=== PATIENT | female | born 1995 | race Hispanic/Latino ===

== ENCOUNTER 2017-01-22 13:15 | Inpatient (IN) | payer OTHER ==
[2017-01-22 13:15] VITALS: BMI 30.9
[2017-01-22] MEDS ORDERED: Albuterol-Ipratrop 3 mg / 0.5 (3 ml) UD INH STA ×3 (13:50→13:53)
[2017-01-22] MEDS ORDERED: Sodium Chloride 0.9% 1,000 ML IV STA (13:51)
--- NOTE | 2017-01-22 13:58 | ED PDOC ---
HPI: Asthma Time Seen by Provider: 01/22/17 13:40 Chief Complaint (Nursing): Shortness Of Breath Chief Complaint (Provider): asthma attack History Per: Patient History/Exam Limitations: no limitations Onset/Duration Of Symptoms: Mins (prior to arrival ) Current Symptoms Are (Timing): Still Present Additional Complaint(s): Misty Simmons is a 21 year old female, with a previous medical history of asthma, who presents to the ED via EMS after sustaining in asthma attack in her PMD's office prior to arrival. Pt reports PMD gave her an injection in the office but is unsure of the name. Pt reports to being given 2 nebulizer treatments by EMS. Pt reports treatments helped alleviate symptoms. Pt states associated symptoms include fevers, chills, sore throat and rhinorrhea which began 10:00 this morning. Pt denies any additional complaints at this time. Of note, pt reports to taking albuterol and ventolin PRN. Pt also reports to being admitted into the ICU for 5 days where she was placed on a bipap in 2015. Pt states she has been unable to receive her influenza vaccination due to her recurring illness. PMD: Jorje Dumont MD - Asthma History Prior Intubation (For Asthma): none Medication Use: PRN Past Medical History Reviewed: Historical Data, Nursing Documentation, Vital Signs Vital Signs: Last Vital Signs Temp 98.0 F 01/22/17 13:17 Pulse 124 H 01/22/17 13:17 Resp 28 H 01/22/17 13:17 BP 131/65 01/22/17 13:17 Pulse Ox - Medical History PMH: Asthma Denies: HIV - Surgical History Surgical History: No Surg Hx - Family History Family History: States: Unknown Family Hx - Home Medications Home Medications: Ambulatory Orders Medication Instructions Recorded Albuterol 0.083% [Albuterol 0.083% 2.5 inh INH DAILY PRN 07/21/15 Inhal Shanti (2.5 mg/3 ml) UD] Albuterol HFA [Ventolin HFA 90 2 puff INH BID 07/21/15 mcg/actuation (8 g)] Albuterol 0.083% [Albuterol 3 ml IH Q4 #30 neb 04/15/16 Sulfate 3 Ml] Prednisone 40 mg PO DAILY #8 tablet 04/15/16 Multivit/Folic Acid/I 1 tab PO DAILY #30 tab 04/15/16 [ Plus] predniSONE [predniSONE Tab] 60 mg PO DAILY #9 tab 07/26/16 - Allergies Allergies/Adverse Reactions: Allergies Allergy/AdvReac Type Severity Reaction Status Date / Time grape Allergy URTICARIA Verified 04/15/16 16:44 Review of Systems ROS Statement: Except As Marked, All Systems Reviewed And Found Negative Constitutional: Positive for: Fever, Chills ENT: Positive for: Throat Pain, Other Respiratory: Positive for: Shortness of Breath Physical Exam - Reviewed Nursing Documentation Reviewed: Yes Vital Signs Reviewed: Yes - Physical Exam Appears: Positive for: Well, Non-toxic, No Acute Distress Skin: Positive for: Warm, Dry, Pallor Eye Exam: Positive for: EOMI, Normal appearance, PERRL ENT: Positive for: Normal ENT Inspection Neck: Positive for: Normal, Painless ROM Cardiovascular/Chest: Positive for: Regular Rate, Rhythm Respiratory: Positive for: Wheezing (expiratory bilaterally diffuse ), Other ( prolonged expiration. labored breathing ) Gastrointestinal/Abdominal: Positive for: Normal Exam, Bowel Sounds, Soft. Negative for: Tenderness Back: Positive for: Normal Inspection Extremity: Positive for: Normal ROM Neurologic/Psych: Positive for: Alert, Oriented. Negative for: Motor/Sensory Deficits - Laboratory Results Result Diagrams: 01/22/17 14:18 01/22/17 14:18 - Progress Re-evaluation Time: 16:00 Condition: Re-examined, Unchanged - Critical Care Total Time (In Min): 30 Medical Decision Making Medical Decision Making: Initial Impression: exacerbated asthma Initial Plan: * labs * duo-neb * duo-neb * duo-neb * peak flow pre/post treatment * peak flow pre/post treatment * influenza A B * reevaluation Scribe Attestation: Documented by Kellen Romero, acting as a scribe for Ronit Davis MD. Provider Scribe Attestation: All medical record entries made by the Tony were at my direction and personally dictated by me. I have reviewed the chart and agree that the record accurately reflects my personal performance of the history, physical exam, medical decision making, and the department course for this patient. I have also personally directed, reviewed, and agree with the discharge instructions and disposition. Disposition - Clinical Impression Clinical Impression: Asthma exacerbation - Patient ED Disposition Is Patient to be Admitted: Yes Doctor Will See Patient In The: Hospital - Disposition Disposition: Transfer of Care Disposition Time: 16:39 Condition: FAIR - Pt Status Changed To: Hospital Disposition Of: Inpatient - Admit Certification Admit to Inpatient:: After my assessment, the patient will require hospitalization for at least two midnights. This is because of the severity of symptoms shown, intensity of services needed, and/or the medical risk in this patient being treated as an outpatient. - POA Present On Arrival: None
[2017-01-22 14:29] LABS: BASO # 0.1 K/uL (0.0-0.2); BASO % 0.5 % (0.0-2.0); EOS # 0.2 K/uL (0.0-0.7); EOS % 0.9 % (0.0-4.0); HEMATOCRIT 40.9 % (34.0-47.0); LYMPH # 0.9 K/uL (1.0-4.3); LYMPH % 4.8 % (20.0-40.0); MEAN CELL VOLUME 83.4 fl (81.0-99.0); MEAN CORPUSCULAR HEMOGLOBIN 26.7 pg (27.0-31.0); MEAN PLATELET VOLUME 9.8 fl (7.2-11.7); MONO # 0.2 K/uL (0.0-0.8); MONO % 1.2 % (0.0-10.0); NEUT # 17.8 K/uL (1.8-7.0); NEUT % 92.6 % (50.0-75.0); PLATELET COUNT 236 K/uL (130-400); RED CELL DISTRIBUTION WIDTH 14.9 % (11.5-14.5); WHITE BLOOD COUNT 19.3 K/uL (4.8-10.8)
[2017-01-22 14:37] LABS: BLOOD UREA NITROGEN 16 mg/dl (7-17); CALCIUM 8.7 mg/dL (8.4-10.2); CARBON DIOXIDE 23 mmol/L (22-30); CHLORIDE 108 mmol/L (98-107); GFR AFRICAN-AMERICAN > 60; GLUCOSE,RANDOM 136 mg/dL (65-105); POTASSIUM 3.7 MMOL/L (3.6-5.0); SODIUM 139 mmol/l (132-148)
[2017-01-22 16:16] LABS: EOSINOPHIL 2 % (0-7); NEUTROPHIL 95 % (42-75); TOTAL CELLS COUNTED 100
--- NOTE | 2017-01-22 16:53 | RAD ---
HISTORY: asthma COMPARISON: 07/26/2016 TECHNIQUE: Chest PA and lateral FINDINGS: LUNGS: No active pulmonary disease. PLEURA: No significant pleural effusion identified. No pneumothorax apparent. CARDIOVASCULAR: Normal. OSSEOUS STRUCTURES: No significant abnormalities. VISUALIZED UPPER ABDOMEN: Normal. OTHER FINDINGS: None. IMPRESSION: No active disease. No significant interval change compared to the prior examination(s).
[2017-01-22] MEDS ORDERED: Influenza Vaccine(5yr & older) 0.5 ML/45 MCG IM ONE (18:50)
[2017-01-22] MEDS ORDERED: Albuterol-Ipratrop 3 mg / 0.5 (3 ml) UD ONE (20:28)
[2017-01-22] MEDS: Albuterol-Ipratrop 3 mg / 0.5 (3 ml) UD INH SCH (20:37)
[2017-01-22] MEDS: Azithromycin 500 MG in Sodium Chloride 0.9% 250 ML IVPB SCH (21:26)
[2017-01-23] MEDS: methylPREDNISolone 80 MG in Sodium Chloride 0.9% 50 ML IV SCH ×2 (00:08→09:17)
[2017-01-23] MEDS: Albuterol-Ipratrop 3 mg / 0.5 (3 ml) UD INH SCH ×6 (01:00→21:49)
[2017-01-23 07:47] LABS: ALB/GLOB RATIO 1.1 (1.0-2.1); ALKALINE PHOSPHATASE 109 U/L (38-126); ALT/SGPT 28 U/L (9-52); AST/SGOT 17 U/L (14-36); BILIRUBIN,TOTAL 0.3 mg/dl (0.2-1.3); BLOOD UREA NITROGEN 15 mg/dl (7-17); CALCIUM 8.8 mg/dL (8.4-10.2); CARBON DIOXIDE 19 mmol/L (22-30); CHLORIDE 109 mmol/L (98-107); GFR AFRICAN-AMERICAN > 60; GLUCOSE,RANDOM 148 mg/dL (65-105); POTASSIUM 3.5 MMOL/L (3.6-5.0); SODIUM 139 mmol/l (132-148); TOTAL PROTEIN 7.3 G/DL (6.3-8.2)
[2017-01-23 07:59] LABS: HEMATOCRIT 39.9 % (34.0-47.0); MEAN CELL VOLUME 83.4 fl (81.0-99.0); MEAN CORPUSCULAR HEMOGLOBIN 26.9 pg (27.0-31.0); MEAN CORPUSCULAR HGB CONC 32.3 g/dL (33.0-37.0); RED CELL DISTRIBUTION WIDTH 14.9 % (11.5-14.5); WHITE BLOOD COUNT 15.2 K/uL (4.8-10.8)
[2017-01-23] MEDS: Azithromycin 500 MG in Sodium Chloride 0.9% 250 ML IVPB SCH (09:18)
--- NOTE | 2017-01-23 10:51 | HP ---
CHIEF COMPLAINT: Shortness of breath. HISTORY OF PRESENT ILLNESS: This is a 21-year-old female, known case of bronchial asthma with histor y of hospital admission from asthma exacerbation in the past, who was seen in the office yesterday an d was found to be in acute exacerbation of bronchial asthma. The patient was treated with inhalation al treatment and steroid injection, but patient's condition did not improve and the patient continued having shortness of breath, so patient was sent to the Emergency Room and was admitted for further m anagement. REVIEW OF SYSTEMS: Positive for shortness of breath. Review of systems otherwise is negative for he adache, dizziness, syncope, loss of consciousness, nausea, vomiting, diarrhea, constipation, any new joint or extremity pain. Review of systems of all other organ systems is unremarkable. PAST MEDICAL HISTORY: Significant for bronchial asthma. PAST SURGICAL HISTORY: Unremarkable. PERSONAL HISTORY: The patient is currently a nonsmoker, nondrinker, no substance abuse. MEDICATIONS: As per reconciliation sheet which was reviewed, in order. ALLERGIES: The patient is not allergic to any medication. FAMILY HISTORY: Noncontributory. PHYSICAL EXAMINATION: GENERAL: Well-built, well-nourished, overweight female in no acute respiratory distress. VITAL SIGNS: Temperature afebrile, pulse 76, respirations 23, blood pressure 140/80. HEENT: Pupils reacting to light. No JVD, no thyromegaly, no lymphadenopathy, no nystagmus. Normoce phalic, atraumatic skull. HEART: S1, S2 normal, regular. LUNGS: The patient has bilateral rhonchi and prolonged expiration. No crepitations. The patient al so has minimal wheezing which is only minimally better than yesterday. ABDOMEN: Soft, nontender, no organomegaly, no fluid. Bowel sounds are plus. EXTREMITIES: No edema, no calf swelling, no tenderness, no acute ischemia. CENTRAL NERVOUS SYSTEM: Essentially unchanged and there is no sign of any acute gross focal motor or sensory neurological deficit. DIAGNOSTIC DATA: Available diagnostic data reviewed. White count is elevated at 19 and now down to 15 as well as ____ compatible with patient's usual laboratory exam. ADMITTING IMPRESSION: Acute exacerbation of bronchial asthma. PLAN: As ordered. Case and plan discussed with patient. Tim Recinos MD cc: [id number] TT: 01/23/2017 10:50:37 tn
[2017-01-23] MEDS: methylPREDNISolone 100 MG in Sodium Chloride 0.9% 50 ML IVPB SCH (17:05)
[2017-01-24] MEDS: methylPREDNISolone 100 MG in Sodium Chloride 0.9% 50 ML IVPB SCH ×2 (00:24→09:36)
[2017-01-24] MEDS: Albuterol-Ipratrop 3 mg / 0.5 (3 ml) UD INH SCH ×7 (00:25→23:51)
--- NOTE | 2017-01-24 07:39 | PQF GENQUE ---
This form is a permanent part of the medical record 01/24/17 Dr. Recinos, Would you please clarify the type of asthma if known . See Physician response section. Admitted for an acute exacerbation of bronchial asthma. Treated with o2, Solumedrol, nebulizer treatments and Zithromax Clarification of your documentation is requested to better reflect the severity of illness and intensity of treatment of your patient. PHYSICIAN'S RESPONSE Type of asthma: [ ] Childhood [ ] Cough variant [ ] Exercise induced [ ] Late onset [ ] Mild intermittent [ ] Mild persistent [ ] Moderate persistent [ ] Severe persistent [ ] With bronchitis(please clarify acuity of bronchitis) [ ] With chronic lung disease (please document specific chronic lung disease ) [ ] Other (please specify) [ ] Unable to determine [ ] Unknown Based on your medical judgment of the clinical indicators outlined above please clarify the following: [] Practitioner response [] If unable to determine, please check the box, sign and date. Present On Admission (POA) Indicator: [] Present at the time of admission [] Not present at the time of admission [] Clinically Undetermined In responding to this query, please exercise your independent professional judgment. The fact that a question is asked does not imply that any particular answer is desired or expected. Thank you for your clarification on this documentation. If you have any questions please call:[phone] * Thank you, Cristina Murray RN CDMP [facility]
--- NOTE | 2017-01-24 10:08 | PN ---
DATE: 01/24/2017 The patient seen and examined. Interim events noted. The patient remains on regular medical floor. The patient feels a little better. Breathing improved, wheezing is decreased. No chest pain, no sh ortness of breath. PHYSICAL EXAMINATION: GENERAL: The patient is in no acute distress. VITAL SIGNS: Stable. HEART: S1, S2 normal, regular. LUNGS: The patient still has prolonged expiration, but wheezing resolved. No rales. Occasional rho nchi. ABDOMEN: Soft, nontender. EXTREMITIES: No calf swelling, no tenderness, no acute ischemia. CENTRAL NERVOUS SYSTEM: Essentially unchanged. DIAGNOSTIC DATA: Available reviewed. Overall, patient's general medical condition is stable and improving. PLAN: As ordered. Tim Recinos MD cc: [id number] TT: 01/24/2017 10:08:02 Confirmation # [id number] Dictation # [id number]
[2017-01-24] MEDS: Azithromycin 500 MG in Sodium Chloride 0.9% 250 ML IVPB SCH (10:50)
[2017-01-24] MEDS: methylPREDNISolone 80 MG in Sodium Chloride 0.9% 50 ML IVPB SCH (16:45)
[2017-01-25] MEDS: methylPREDNISolone 80 MG in Sodium Chloride 0.9% 50 ML IVPB SCH ×2 (00:15→08:02)
[2017-01-25] MEDS: Albuterol-Ipratrop 3 mg / 0.5 (3 ml) UD INH SCH ×6 (04:59→23:43)
[2017-01-25] MEDS: Azithromycin 500 MG in Sodium Chloride 0.9% 250 ML IVPB SCH (08:03)
--- NOTE | 2017-01-25 08:36 | PN ---
DATE: 01/25/2017 The patient was seen and examined. Interim events noted. The patient remains in medical floor. The patient feels much better, getting improved. No chest pain, no shortness of breath. ____. PHYSICAL EXAMINATION: GENERAL: The patient is in no acute distress. VITAL SIGNS: Stable. HEART: S1, S2 normal, regular. LUNGS: Good bilateral air entry. No wheezing, no rhonchi. ABDOMEN: Soft, nontender. EXTREMITIES: No calf swelling, no tenderness, no acute ischemia. CENTRAL NERVOUS SYSTEM: Essentially unchanged. DIAGNOSTIC DATA: Available diagnostic data reviewed. The patient is slowly improving. Asthma is under control. ____ steroid. PLAN: As ordered. Case and plan discussed with patient and the patient's mother. Tim Recinos MD cc: [id number] TT: 01/25/2017 08:35:27 Confirmation # [id number] Dictation # [id number] tn
[2017-01-25] MEDS: methylPREDNISolone 60 MG in Sodium Chloride 0.9% 50 ML IVPB SCH (17:03)
[2017-01-26] MEDS: methylPREDNISolone 60 MG in Sodium Chloride 0.9% 50 ML IVPB SCH
[2017-01-26] MEDS: Albuterol-Ipratrop 3 mg / 0.5 (3 ml) UD INH SCH ×5 (04:54→19:39)
--- NOTE | 2017-01-26 07:57 | PN ---
DATE: 01/26/2017 The patient is seen and examined. Interim events noted. The patient remains on medical floor. The patient feels better. No chest pain, no shortness of breath. PHYSICAL EXAMINATION: GENERAL: The patient is in no acute distress. VITAL SIGNS: Stable. HEART: S1, S2 normal, regular. LUNGS: Good bilateral air exchange. ABDOMEN: Soft, nontender. EXTREMITIES: No edema, no calf swelling, no tenderness, no acute ischemia. CENTRAL NERVOUS SYSTEM: Essentially unchanged. DIAGNOSTIC DATA: Available diagnostic data reviewed. Overall, the patient's general medical condition is stable. The patient still has some prolonged exp iration on lung exam, but it improved remarkably per the patient. PLAN: As ordered. Tim Recinos MD cc: [id number] TT: 01/26/2017 07:56:31 Confirmation # [id number] Dictation # [id number]
[2017-01-26] MEDS: Azithromycin 500 MG in Sodium Chloride 0.9% 250 ML IVPB SCH (09:21)
[2017-01-26] MEDS: methylPREDNISolone 40 MG in Sodium Chloride 0.9% 50 ML IVPB SCH ×2 (11:43→17:25)
[2017-01-27] MEDS: Albuterol-Ipratrop 3 mg / 0.5 (3 ml) UD INH SCH ×3 (00:12→08:05)
[2017-01-27 09:52] VITALS: BP 137/83; PULSE 84; RESP 22; TEMP 97.8; O2SAT 100
--- NOTE | 2017-01-27 10:04 | PN ---
DATE: 01/27/2017 The patient seen and examined. Interim events noted. The patient feels much better. No chest pain or shortness of breath. No wheezing. PHYSICAL EXAMINATION: GENERAL: The patient is in no acute distress. VITAL SIGNS: Stable. HEART: S1, S2 normal, regular. LUNGS: Good bilateral air exchange. ABDOMEN: Soft, nontender. EXTREMITIES: No edema, no calf swelling, no tenderness. No acute ischemia. CENTRAL NERVOUS SYSTEM: Essentially unchanged. DIAGNOSTIC DATA: Available diagnostic data reviewed. Overall, patient's general medical condition is stable. The patient is tolerating p.o. medication. Wheezing stopped after exacerbation of bronchial asthma resolved. The patient is medically stable an d will discharge patient home. Case and plan discussed with patient. Tim Recinos MD cc: [id number] TT: 01/27/2017 10:03:49 Confirmation # [id number] Dictation # [id number]
== END 2017-01-27 11:10 | disposition home or self-care (01) | DRG 97 ==
LOC: H.ER 13:15 → H.ERHOLD 17:08 → H.PEDS 18:25
PROVIDERS: ADMIT Internal Medicine; ATTEND Internal Medicine
DX: J45.41 Moderate persistent asthma with (acute) exacerbation (principal); E66.3 Overweight; Z68.32 Body mass index [BMI] 32.0-32.9, adult

== ENCOUNTER 2017-03-02 00:43 | Emergency (ER) | payer OTHER ==
[2017-03-02 00:43] VITALS: BMI 30.9
[2017-03-02 00:58] VITALS: BP 124/55; PULSE 74; RESP 18; TEMP 98; O2SAT 100
--- NOTE | 2017-03-02 02:38 | ED PDOC ---
Upper Extremity Pain/Injury Time Seen by Provider: 03/02/17 02:19 Chief Complaint (Nursing): Upper Extremity Problem/Injury Chief Complaint (Provider): right shoulder pain History Per: Patient History/Exam Limitations: no limitations Additional Complaint(s): 21yo F in Ed for eval of right shoulder pain sustained this morning upon awakeining without acute injury. denies numbness/tingling to UE. admits to dec ROM of shoulder. no medical problems Past Medical History Reviewed: Historical Data, Nursing Documentation, Vital Signs Vital Signs: Last Vital Signs Temp 98 F 03/02/17 00:49 Pulse 74 03/02/17 00:49 Resp 18 03/02/17 00:49 BP 124/55 L 03/02/17 00:49 Pulse Ox 100 03/02/17 00:49 - Medical History PMH: Asthma Denies: HIV, Chronic Kidney Disease - Family History Family History: States: Unknown Family Hx - Home Medications Home Medications: Ambulatory Orders Medication Instructions Recorded Albuterol HFA [Ventolin HFA 90 2 puff INH BID 07/21/15 mcg/actuation (8 g)] Naproxen [Naprosyn] 500 mg PO BID #30 tab 03/02/17 - Allergies Allergies/Adverse Reactions: Allergies Allergy/AdvReac Type Severity Reaction Status Date / Time grape Allergy URTICARIA Verified 01/23/17 10:43 Review of Systems ROS Statement: Except As Marked, All Systems Reviewed And Found Negative Musculoskeletal: Positive for: Shoulder Pain Physical Exam - Reviewed Nursing Documentation Reviewed: Yes Vital Signs Reviewed: Yes - Physical Exam Appears: Positive for: Well, Non-toxic, No Acute Distress Head Exam: Positive for: ATRAUMATIC, NORMAL INSPECTION, NORMOCEPHALIC Skin: Positive for: Normal Color, Warm, DRY Cardiovascular/Chest: Positive for: Regular Rate, Rhythm Respiratory: Positive for: CNT, Normal Breath Sounds Extremity: Positive for: Other (right shoulder: nontendern AC joint no defomirty FROM of shoulder axiallry nerve intact) Neurologic/Psych: Positive for: Alert, Oriented - ECG O2 Sat by Pulse Oximetry: 100 - Progress ED Course And Treament: torodol IM Medical Decision Making Medical Decision Making: pt given torodol pain improved advised to continue to range shoulder and f.u with pmd motrin for apin Disposition - Clinical Impression Clinical Impression: Shoulder injury - Patient ED Disposition Is Patient to be Admitted: No Counseled Patient/Family Regarding: Studies Performed, Diagnosis, Need For Followup, Rx Given - Disposition Disposition: Routine/Home Disposition Time: 02:40 Condition: IMPROVED Prescriptions: Naproxen [Naprosyn] 500 mg PO BID #30 tab Instructions: Shoulder Pain (ED)
== END 2017-03-02 03:03 | disposition home or self-care (01) ==
LOC: H.ER 00:43
DX: M25.511 Pain in right shoulder (principal)

== ENCOUNTER 2017-08-17 20:16 | Emergency (ER) | payer OTHER ==
[2017-08-17 20:17] VITALS: BMI 30.9
[2017-08-17] MEDS ORDERED: Albuterol-Ipratrop 3 mg / 0.5 (3 ml) UD ONE (20:38)
[2017-08-17] MEDS ORDERED: Albuterol-Ipratrop 3 mg / 0.5 (3 ml) UD INH STA (20:50)
--- NOTE | 2017-08-17 21:00 | ED PDOC ---
HPI: SOB/CHF/COPD Time Seen by Provider: 08/17/17 20:29 Chief Complaint (Nursing): Shortness Of Breath Chief Complaint (Provider): Shortness of breath History Per: Patient History/Exam Limitations: no limitations Onset/Duration Of Symptoms: Days (x1), Worse Since (today) Current Symptoms Are (Timing): Still Present Quality: Tightness Associated Symptoms: Productive Cough, Other (Runny nose & sore throat). denies : Fever, Ankle/Leg Swelling Additional Complaint(s): Misty Simmons is a 21 year old female, with a past medical history of asthma, who presents to the emergency department complaining of a worsening shortness of breath onset since yesterday. Patient describes it as chest tightness, similar to previous asthma exacerbations, but no improvement with home medications. Patient also reports having URI since yesterday with productive cough, runny nose and sore throat. Patient was seen by PMD yesterday who prescribed him prednisone and azithromycin. Patient denies any fever, leg swelling or hemoptysis. No further medical complaints. PMD: Dr. Woody Past Medical History Reviewed: Historical Data, Nursing Documentation, Vital Signs Vital Signs: Last Vital Signs Temp Pulse 130 H 08/17/17 20:27 Resp 20 08/17/17 20:34 BP 121/75 08/17/17 20:27 Pulse Ox 98 08/17/17 21:14 - Medical History PMH: Asthma Denies: HIV, Chronic Kidney Disease - Surgical History Surgical History: Hernia Repair (as an ) - Family History Family History: States: Other Other Family History: Asthma - Social History Current smoker - smoking cessation education provided: No Alcohol: None Drugs: Denies - Home Medications Home Medications: Ambulatory Orders Medication Instructions Recorded Albuterol HFA [Ventolin HFA 90 2 puff INH BID 07/21/15 mcg/actuation (8 g)] Naproxen [Naprosyn] 500 mg PO BID #30 tab 03/02/17 Albuterol 0.083% [Albuterol 3 ml IH Q4 PRN #50 neb 08/17/17 Sulfate 3 Ml] Albuterol HFA [Ventolin HFA 90 2 puff IH Q4H PRN #1 inh 08/17/17 mcg/actuation (8 g)] Fexofenadine HCl [CamilleNf] 180 mg PO DAILY #30 tab 08/17/17 Montelukast [Singulair] 10 mg PO DAILY #30 tab 08/17/17 - Allergies Allergies/Adverse Reactions: Allergies Allergy/AdvReac Type Severity Reaction Status Date / Time grape Allergy URTICARIA Verified 01/23/17 10:43 Review of Systems ROS Statement: Except As Marked, All Systems Reviewed And Found Negative Constitutional: Negative for: Fever ENT: Positive for: Throat Pain (sore throat), Other (Runny nose) Respiratory: Positive for: Cough (productive ), Shortness of Breath. Negative for: Other (hemoptysis ) Musculoskeletal: Negative for: Leg Pain (leg swelling) Physical Exam - Reviewed Nursing Documentation Reviewed: Yes Vital Signs Reviewed: Yes - Physical Exam Appears: Positive for: Non-toxic, In Acute Distress Head Exam: Positive for: ATRAUMATIC, NORMOCEPHALIC Skin: Positive for: Warm, Dry Eye Exam: Positive for: EOMI, PERRL ENT: Negative for: Pharyngeal Erythema, Tonsillar Exudate Neck: Positive for: Painless ROM, Supple Cardiovascular/Chest: Positive for: Tachycardia (regular rhythm) Respiratory: Positive for: Wheezing, Respiratory Distress. Negative for: Rales , Rhonchi Gastrointestinal/Abdominal: Positive for: Soft. Negative for: Tenderness Back: Positive for: Normal Inspection. Negative for: Decreased ROM Extremity: Positive for: Normal ROM. Negative for: Pedal Edema Lymphatic: Negative for: Adenopathy Neurologic/Psych: Positive for: Alert. Negative for: Motor/Sensory Deficits - Laboratory Results Result Diagrams: 08/17/17 21:40 08/17/17 21:40 - ECG ECG: Positive for: Interpreted By Hi ECG Rhythm: Positive for: Normal ST Segment, Sinus Tachycardia O2 Sat by Pulse Oximetry: 98 (RA) Pulse Ox Interpretation: Normal - Radiology X-Ray: Interpreted by Hi X-Ray Interpretation: No Acute Disease - Progress Re-evaluation Time: 22:00 Condition: Improving,but remains with symptoms (Evaluated again at 11pm and pt reports feeling better.) - Critical Care Total Time (In Min): 30 Documented Critical Care: Time excludes all time spent performint seperately billable procedures Medical Decision Making Medical Decision Making: Initial Impression: Asthma exacerbation. Differential includes: viral syndrome, PNA, status asthmaticus Initial Plan: --Venous Blood Gas Shock Panel --EKG --Comp Metabolic Panel --Urine Dipstick --Urine prepgnancy --CBC w/ differential --Chest portable [RAD] --Duoneb 9 ml INH --methylPREDNISoline 125 mg IVP --Blood culture --Peak flow Pre/post [place] --Influenza A B --Rapid Strep Group A antigen --reevaluation 11pm Pt reports feeling better. Eager to go home. Lung sounds improved despite minimal improvement of peak flow. DW pt findings and need to follow up. Will also rx camille, singulair and additional albuterol Scribe Attestation: Documented by Claudio Randall, acting as a scribe for Faith Steele MD Provider Scribe Attestation: All medical record entries made by the Scribe were at my direction and personally dictated by me. I have reviewed the chart and agree that the record accurately reflects my personal performance of the history, physical exam, medical decision making, and the department course for this patient. I have also personally directed, reviewed, and agree with the discharge instructions and disposition. Disposition - Clinical Impression Clinical Impression: Asthma exacerbation Counseled Patient/Family Regarding: Studies Performed, Diagnosis, Need For Followup, Rx Given - Disposition Referrals: Tim Myers MD [Family Provider] - 08/18/17 Disposition: Routine/Home Disposition Time: 23:06 Condition: IMPROVED Additional Instructions: CONTINUE PREDNISONE AND AZITHROMYCIN PRESCRIBED FOLLOW UP WITH DR MYERS TOMORROW RETURN TO ER FOR WORSENING SYMPTOMS Prescriptions: Albuterol 0.083% [Albuterol Sulfate 3 Ml] 3 ml IH Q4 PRN #50 neb PRN Reason: asthma Albuterol HFA [Ventolin HFA 90 mcg/actuation (8 g)] 2 puff IH Q4H PRN #1 inh PRN Reason: ASTHMA Fexofenadine HCl [CamilleNf] 180 mg PO DAILY #30 tab Montelukast [Singulair] 10 mg PO DAILY #30 tab Instructions: Asthma (ED), Bronchospasm (ED) Forms: [facility] ED School/Work Excuse
[2017-08-17 21:37] LABS: VENOUS BLOOD GAS BASE EXCESS -5.6 mmol/L (0.0-2.0); VENOUS BLOOD GAS PCO2 30 mmHg (40-60); VENOUS BLOOD PH 7.39 (7.32-7.43)
[2017-08-17 21:56] LABS: BASO % 0.2 % (0.0-2.0); HEMATOCRIT 39.3 % (34.0-47.0); LYMPH # 0.6 K/uL (1.0-4.3); LYMPH % 4.8 % (20.0-40.0); MEAN CELL VOLUME 83.9 fl (81.0-99.0); MEAN CORPUSCULAR HEMOGLOBIN 26.7 pg (27.0-31.0); MEAN CORPUSCULAR HGB CONC 31.9 g/dL (33.0-37.0); MEAN PLATELET VOLUME 10.5 fl (7.2-11.7); MONO # 0.3 K/uL (0.0-0.8); MONO % 2.5 % (0.0-10.0); NEUT # 12.2 K/uL (1.8-7.0); NEUT % 92.5 % (50.0-75.0); PLATELET COUNT 255 K/uL (130-400); WHITE BLOOD COUNT 13.2 K/uL (4.8-10.8)
[2017-08-17 22:02] LABS: ALB/GLOB RATIO 1.4 (1.0-2.1); ALKALINE PHOSPHATASE 90 U/L (38-126); ALT/SGPT 21 U/L (9-52); AST/SGOT 18 U/L (14-36); BILIRUBIN,TOTAL 0.1 mg/dl (0.2-1.3); BLOOD UREA NITROGEN 16 mg/dl (7-17); CARBON DIOXIDE 16 mmol/L (22-30); CHLORIDE 111 mmol/L (98-107); GFR AFRICAN-AMERICAN > 60; GLUCOSE,RANDOM 203 mg/dL (65-105); POTASSIUM 3.8 MMOL/L (3.6-5.0); SODIUM 144 mmol/l (132-148); TOTAL PROTEIN 7.1 G/DL (6.3-8.2)
[2017-08-17 22:34] LABS: BASOPHIL 1 % (0-2); NEUTROPHIL 92 % (42-75); TOTAL CELLS COUNTED 100
[2017-08-17 23:20] VITALS: BP 133/65; PULSE 110; RESP 18; TEMP 98
[2017-08-17 23:22] VITALS: O2SAT 98
--- NOTE | 2017-08-18 08:29 | CARD ---
APPROVED REPORT EKG Measurement Heart [id number] <Conclusion> Sinus tachycardia Otherwise normal ECG
--- NOTE | 2017-08-18 08:49 | RAD ---
HISTORY: sob cough COMPARISON: Chest radiographs 01/22/2017. FINDINGS: LUNGS: No active pulmonary disease. PLEURA: No significant pleural effusion identified, no pneumothorax apparent. CARDIOVASCULAR: Normal. OSSEOUS STRUCTURES: No significant abnormalities. VISUALIZED UPPER ABDOMEN: Normal. OTHER FINDINGS: None. IMPRESSION: No interval acute cardiopulmonary disease appreciated.
== END 2017-08-17 23:20 | disposition home or self-care (01) ==
LOC: H.ER 20:16
DX: J45.901 Unspecified asthma with (acute) exacerbation (principal); J98.01 Acute bronchospasm
CPT/HCPCS: 71010; 80053; 81025; 82803; 85025; 87040; 87070; 87430; 87804; 93005; 94150; 94640; 96374; 99285; J2930

== ENCOUNTER 2018-03-18 20:07 | Emergency (ER) | payer OTHER ==
[2018-03-18 20:07] VITALS: BMI 30.9
[2018-03-18 20:28] VITALS: BP 99/52; PULSE 97; TEMP 97.7; O2SAT 99
[2018-03-18] MEDS ORDERED: Albuterol-Ipratrop 3 mg / 0.5 (3 ml) UD INH STA ×3 (20:36→20:37)
--- NOTE | 2018-03-18 20:47 | ED PDOC ---
HPI: SOB/CHF/COPD Time Seen by Provider: 03/18/18 20:26 Chief Complaint (Nursing): Shortness Of Breath Chief Complaint (Provider): shortness of breath History Per: Patient History/Exam Limitations: no limitations Onset/Duration Of Symptoms: Days (x2) Current Symptoms Are (Timing): Still Present Associated Symptoms: denies: Fever, Chills, Other (vomiting and diarrhea) Additional Complaint(s): Misty Simmons is a 22 year old female, with a past medical history of asthma, who presents to the emergency department complaining of shortness of breath onset for x2 days. Patient reports since yesterday she's had intermittent wheezing, shortness of breath, and a sensation of chest tightness. Patient used inhaler and nebulizer at home with no relief. Patient had a sore throat yesterday but resolved. She denies any fever, chills, vomiting or diarrhea. No further medical complaints. PMD: Tim Recinos Past Medical History Reviewed: Historical Data, Nursing Documentation, Vital Signs Vital Signs: Last Vital Signs Temp 97.7 F 03/18/18 20:26 Pulse 97 H 03/18/18 20:26 Resp 22 03/18/18 20:57 BP 99/52 L 03/18/18 20:26 Pulse Ox 99 03/18/18 20:52 - Medical History PMH: Asthma Denies: HIV, Chronic Kidney Disease - Surgical History Surgical History: Hernia Repair (as an infant) - Family History Family History: States: Unknown Family Hx - Social History Current smoker - smoking cessation education provided: No Alcohol: None Drugs: Denies - Home Medications Home Medications: Ambulatory Orders Medication Instructions Recorded Albuterol HFA [Ventolin HFA 90 2 puff INH BID 07/21/15 mcg/actuation (8 g)] Naproxen [Naprosyn] 500 mg PO BID #30 tab 03/02/17 Albuterol 0.083% [Albuterol 3 ml IH Q4 PRN #50 neb 08/17/17 Sulfate 3 Ml] Albuterol HFA [Ventolin HFA 90 2 puff IH Q4H PRN #1 inh 08/17/17 mcg/actuation (8 g)] Fexofenadine HCl [MarniNf] 180 mg PO DAILY #30 tab 08/17/17 Montelukast [Singulair] 10 mg PO DAILY #30 tab 08/17/17 Methylprednisolone [Medrol Dosepak] 4 mg PO ASDIR #1 pkg 03/18/18 - Allergies Allergies/Adverse Reactions: Allergies Allergy/AdvReac Type Severity Reaction Status Date / Time grape Allergy URTICARIA Verified 01/23/17 10:43 Review of Systems ROS Statement: Except As Marked, All Systems Reviewed And Found Negative Constitutional: Negative for: Fever, Chills ENT: Negative for: Throat Pain (resolved) Respiratory: Positive for: Shortness of Breath, Wheezing, Other (chest tightness ) Gastrointestinal: Negative for: Vomiting, Diarrhea Physical Exam - Reviewed Nursing Documentation Reviewed: Yes Vital Signs Reviewed: Yes - Physical Exam Appears: Positive for: Non-toxic Head Exam: Positive for: ATRAUMATIC, NORMOCEPHALIC Skin: Positive for: Normal Color, Warm, Dry Eye Exam: Positive for: Normal appearance, EOMI, PERRL Neck: Positive for: Painless ROM Cardiovascular/Chest: Positive for: Regular Rate, Rhythm. Negative for: Murmur Respiratory: Positive for: Wheezing (bilateral expiratory with decreased air entry, more pronounced on left than right), Respiratory Distress (mild ) Gastrointestinal/Abdominal: Positive for: Normal Exam, Soft. Negative for: Tenderness Back: Positive for: Normal Inspection. Negative for: L CVA Tenderness, R CVA Tenderness, Vertebral Tenderness Extremity: Positive for: Normal ROM (upper and lower extremities). Negative for : Deformity, Swelling Neurologic/Psych: Positive for: Alert, Oriented. Negative for: Motor/Sensory Deficits - ECG O2 Sat by Pulse Oximetry: 99 (RA) Pulse Ox Interpretation: Normal - Critical Care Total Time (In Min): 30 Documented Critical Care: Time excludes all time spent performint seperately billable procedures Medical Decision Making Medical Decision Making: Initial Impression: 22 y/o female with asthma exacerbation Initial Plan: --Urine --Duoneb 3 ml INH --SOLU-medrol 125 mg IVP --Peak flow pre/post Tx --Reevaluation 22:30 -Patient reports significant improvement of symptoms. Patient is medically stable for discharge at this time, diagnosis asthma exacerbation. ----- Scribe Attestation: Documented by Claudio Randall, acting as a scribe for Bryan Mar MD. Provider Scribe Attestation: All medical record entries made by the Scribe were at my direction and personally dictated by me. I have reviewed the chart and agree that the record accurately reflects my personal performance of the history, physical exam, medical decision making, and the department course for this patient. I have also personally directed, reviewed, and agree with the discharge instructions and disposition. Disposition - Clinical Impression Clinical Impression: Asthma exacerbation - Disposition Disposition: Routine/Home Disposition Time: 22:30 Condition: STABLE Prescriptions: Methylprednisolone [Medrol Dosepak] 4 mg PO ASDIR #1 pkg Instructions: Asthma in Adults Forms: [facility] (Yoruba)
[2018-03-18 20:58] VITALS: RESP 22
[2018-03-18] MEDS ORDERED: Albuterol-Ipratrop 3 mg / 0.5 (3 ml) UD ONE (21:15)
== END 2018-03-18 22:56 | disposition home or self-care (01) ==
LOC: H.ER 20:07
DX: J45.901 Unspecified asthma with (acute) exacerbation (principal); J44.9 Chronic obstructive pulmonary disease, unspecified
CPT/HCPCS: 81025; 94640; 96374; 99283; J2930

== ENCOUNTER 2018-10-17 14:39 | Emergency (ER) | payer OTHER ==
[2018-10-17 14:39] VITALS: BMI 30.9
[2018-10-17] MEDS ORDERED: Albuterol-Ipratrop 3 mg / 0.5 (3 ml) UD IH STA ×2 (15:48→15:49)
[2018-10-17] MEDS ORDERED: Albuterol-Ipratrop 3 mg / 0.5 (3 ml) UD INH STA (15:48)
--- NOTE | 2018-10-17 15:51 | ED PDOC ---
History of Present Illness History of Present Illness: Misty Simmons is a 22 year old female with a past medical history of asthma who is presenting to the ED for evaluation of cough, congestion, and trouble breathing onset yesterday. Patient states that she has mild chest tightness similar to past episodes of asthma exacerbation and reports green phlegm. She admits that she took her asthma treatment at home with no improvement in symptoms. Patient denies any nausea, vomiting, abdominal pain, or leg pain. She offers no other medical complaints at this time. No weakness. No long distance travel or bc pills. PMD: Tim Recinos HPI: Influenza Time Seen by Provider: 10/17/18 15:17 Chief Complaint: Cough, Cold, Congestion Chief Complaint (Provider): Cough, Cold, Congestion History Per: Patient Exam Limitations: no limitations Onset/Duration Of Symptoms: Days (x1) Symptoms include: cough, nasal congestion, chest pain (tightness), difficulty breathing. denies: vomiting Past Medical History Reviewed: Historical Data, Nursing Documentation, Vital Signs Vital Signs: Last Vital Signs Temp 99.1 F 10/17/18 14:49 Pulse 119 H 10/17/18 14:49 Resp 16 10/17/18 14:49 BP 112/67 10/17/18 14:49 Pulse Ox 96 10/17/18 14:49 - Medical History PMH: Asthma Denies: HIV, Chronic Kidney Disease - Surgical History Surgical History: Hernia Repair (as an ) - Family History Family History: States: Unknown Family Hx - Social History Current smoker - smoking cessation education provided: No Alcohol: None Drugs: Denies - Home Medications Home Medications: Ambulatory Orders Medication Instructions Recorded Albuterol HFA [Ventolin HFA 90 2 puff INH BID 07/21/15 mcg/actuation (8 g)] Naproxen [Naprosyn] 500 mg PO BID #30 tab 03/02/17 Albuterol 0.083% [Albuterol 3 ml IH Q4 PRN #50 neb 08/17/17 Sulfate 3 Ml] Albuterol HFA [Ventolin HFA 90 2 puff IH Q4H PRN #1 inh 08/17/17 mcg/actuation (8 g)] Fexofenadine HCl [MarniNf] 180 mg PO DAILY #30 tab 08/17/17 Montelukast [Singulair] 10 mg PO DAILY #30 tab 08/17/17 Methylprednisolone [Medrol Dosepak] 4 mg PO ASDIR #1 pkg 03/18/18 Albuterol Sulfate [Proair Hfa] 0.09 mg IH Q6H PRN #2 inh 10/17/18 predniSONE [predniSONE Tab] 20 mg PO BID 5 Days tab 10/17/18 - Allergies Allergies/Adverse Reactions: Allergies Allergy/AdvReac Type Severity Reaction Status Date / Time grape Allergy URTICARIA Verified 01/23/17 10:43 Review of Systems ROS Statement: Except As Marked, All Systems Reviewed And Found Negative ENT: Positive for: Nose Congestion Cardiovascular: Positive for: Chest Pain (tightness) Respiratory: Positive for: Cough, Shortness of Breath, Sputum, Wheezing, Other (difficulty breathing ) Gastrointestinal: Negative for: Nausea, Vomiting, Abdominal Pain Musculoskeletal: Negative for: Leg Pain Physical Exam - Reviewed Nursing Documentation Reviewed: Yes Vital Signs Reviewed: Yes - Physical Exam Appears: Positive for: Uncomfortable Head Exam: Positive for: ATRAUMATIC, NORMAL INSPECTION, NORMOCEPHALIC Skin: Positive for: Normal Color, Warm, DRY Eye Exam: Positive for: EOMI, Normal appearance, PERRL ENT: Positive for: Nasal Congestion Neck: Positive for: Normal, Painless ROM, Supple Cardiovascular/Chest: Positive for: Regular Rate, Rhythm. Negative for: Murmur Respiratory: Positive for: Decreased Breath Sounds, Wheezing (diffuse ) Gastrointestinal/Abdominal: Positive for: Normal Exam, Soft. Negative for: Tenderness Back: Positive for: Normal Inspection. Negative for: L CVA Tenderness, R CVA Tenderness Extremity: Positive for: Normal ROM. Negative for: Pedal Edema, Deformity, Swelling Neurologic/Psych: Positive for: Alert, Oriented. Negative for: Motor/Sensory Deficits Medical Decision Making Medical Decision Making: Time: 15:49 Plan: --EKG --Duoneb 3 ml INH (x3) --Prednisone Tab 60 mg PO --Peak Flow Pre/Post Tx (x2) --Influenza A B Scribe Attestation: Documented by, Tessa Jain acting as a scribe for Des Gallagher MD. Provider Scribe Attestation: All medical record entries made by the Scribe were at my direction and pers onally dictated by me. I have reviewed the chart and agree that the record accurately reflects my personal performance of the history, physical exam, medical decision making, and the department course for this patient. I have also personally directed, reviewed, and agree with the discharge instructions and disposition. - ECG O2 Sat by Pulse Oximetry: 96 (RA) Pulse Ox Interpretation: Normal - Progress ED Course And Treament: 1657: Stable. AAOx3. Tolerated PO. Fu with pcp. Breathing with no issues. - Critical Care Total Time (In Min): 30 Documented Critical Care: Time excludes all time spent performint seperately jaycee lable procedures Disposition - Clinical Impression Clinical Impression: Asthma exacerbation, URI (upper respiratory infection) - Patient ED Disposition Is Patient to be Admitted: No Counseled Patient/Family Regarding: Studies Performed, Diagnosis, Need For Followup, Rx Given - Disposition Referrals: [facility] [Outside] - 10/19/18 Disposition: Routine/Home Disposition Time: 16:52 Condition: STABLE Additional Instructions: Return if not better in 3 days. Prescriptions: Albuterol Sulfate [Proair Hfa] 0.09 mg IH Q6H PRN #2 inh PRN Reason: Wheezing predniSONE [predniSONE Tab] 20 mg PO BID 5 Days tab Instructions: Asthma in Adults, Viral Upper Respiratory Infection, Adult (DC) Forms: [employer] (Anguillan)
[2018-10-17] MEDS ORDERED: Albuterol-Ipratrop 3 mg / 0.5 (3 ml) UD ONE (16:09)
[2018-10-17 17:28] VITALS: BP 115/71; PULSE 114; RESP 18; TEMP 98.3; O2SAT 95
--- NOTE | 2018-10-18 19:01 | CARD ---
APPROVED REPORT Date of service: 10/17/2018 EKG Measurement Heart [id number] <Conclusion> Sinus tachycardia Otherwise normal ECG
== END 2018-10-17 18:03 | disposition home or self-care (01) ==
LOC: H.ER 14:39
DX: J45.901 Unspecified asthma with (acute) exacerbation (principal); J06.9 Acute upper respiratory infection, unspecified

== ENCOUNTER 2019-03-01 16:13 | Emergency (ER) | payer OTHER ==
[2019-03-01 16:13] VITALS: BMI 30.9
[2019-03-01 17:09] VITALS: BP 104/55; PULSE 94; RESP 16; TEMP 98.2; O2SAT 97
--- NOTE | 2019-03-01 19:33 | ED PDOC ---
HPI: Eye Injury/Pain Time Seen by Provider: 03/01/19 17:22 Chief Complaint (Nursing): Eye Problem Chief Complaint (Provider): eye swelling History Per: Patient History/Exam Limitations: no limitations Onset/Duration Of Symptoms: Days Current Symptoms Are (Timing): Still Present Injury To Eye?: No Wears Contact Lens?: No Associated Symptoms: Swelling. denies: Pain, FB Sensation (Pt. is a healthy 23 y/o Female who reports several day history of bilateral lower eyelid swelling. She reports no associated eye irritation, no drainage from eyes, no visual disturbance. She reports swelling without itching and and no significant pain. She saw her PMD at symptom onset and was told possible stye.), Itching, Discharge From Eye Past Medical History Vital Signs: Last Vital Signs Temp 98.2 F 03/01/19 17:07 Pulse 94 H 03/01/19 17:07 Resp 16 03/01/19 17:07 BP 104/55 L 03/01/19 17:07 Pulse Ox 97 03/01/19 17:07 - Medical History PMH: Asthma Denies: HIV, Chronic Kidney Disease - Surgical History Surgical History: Hernia Repair (as an ) - Family History Family History: States: Unknown Family Hx - Home Medications Home Medications: Ambulatory Orders Medication Instructions Recorded Albuterol HFA [Ventolin HFA 90 2 puff INH BID 07/21/15 mcg/actuation (8 g)] Naproxen [Naprosyn] 500 mg PO BID #30 tab 03/02/17 Albuterol 0.083% [Albuterol 3 ml IH Q4 PRN #50 neb 08/17/17 Sulfate 3 Ml] Albuterol HFA [Ventolin HFA 90 2 puff IH Q4H PRN #1 inh 08/17/17 mcg/actuation (8 g)] Fexofenadine HCl [MarniNf] 180 mg PO DAILY #30 tab 08/17/17 Montelukast [Singulair] 10 mg PO DAILY #30 tab 08/17/17 Methylprednisolone [Medrol Dosepak] 4 mg PO ASDIR #1 pkg 03/18/18 Albuterol Sulfate [Proair Hfa] 0.09 mg IH Q6H PRN #2 inh 10/17/18 predniSONE [predniSONE Tab] 20 mg PO BID 5 Days tab 10/17/18 Cephalexin [cephalexin] 500 mg PO TID #15 cap 03/01/19 DiphenhydrAMINE [Benadryl] 50 mg PO BID #20 cap 03/01/19 - Allergies Allergies/Adverse Reactions: Allergies Allergy/AdvReac Type Severity Reaction Status Date / Time grape Allergy URTICARIA Verified 03/01/19 17:07 Review of Systems Constitutional: Negative for: Fever, Chills Eyes: Negative for: Pain, Vision Change, Conjunctivae Inflammation, Redness ENT: Negative for: Ear Pain, Nose Congestion, Throat Pain Skin: Negative for: Rash Physical Exam - Reviewed Vital Signs Reviewed: Yes - Physical Exam Appears: Positive for: Well, Non-toxic Head Exam: Positive for: ATRAUMATIC Skin: Positive for: Normal Color, Warm, Dry Eye Exam: Positive for: Normal appearance, EOMI, PERRL, Periorbital swelling (Mild infraorbital swelling with mild tenderness, (-) erythema), Other ((-) hordeolum). Negative for: Conjunctival injection ENT: Positive for: Normal ENT Inspection Cardiovascular/Chest: Positive for: Regular Rate, Rhythm Respiratory: Positive for: Normal Breath Sounds - ECG O2 Sat by Pulse Oximetry: 97 Medical Decision Making Medical Decision Making: Exam as above, slight lower eyelid swelling likely allergic rx benadryl given. however given mild tenderness on exam, also gave rx for keflex and pt. agrees to return to ed if any worsening swelling, pain, erythema, or fever. Disposition - Clinical Impression Clinical Impression: Eye swelling, bilateral - Patient ED Disposition Is Patient to be Admitted: No Counseled Patient/Family Regarding: Diagnosis, Need For Followup, Rx Given - Disposition Disposition: Routine/Home Disposition Time: 18:36 Condition: STABLE Prescriptions: Cephalexin [cephalexin] 500 mg PO TID #15 cap DiphenhydrAMINE [Benadryl] 50 mg PO BID #20 cap Instructions: Skin Rash (DC), Orbital Cellulitis (DC) Forms: [employer] (Portuguese)
== END 2019-03-01 18:46 | disposition home or self-care (01) ==
LOC: H.ER 16:13
DX: H02.9 Unspecified disorder of eyelid (principal); J45.909 Unspecified asthma, uncomplicated